=== PATIENT | female | born 1955 | race African-American/Black ===

== ENCOUNTER 2016-07-25 09:55 | Emergency (ER) | payer SELFPAY ==
[~2016-07-25 09:55] MED LIST: ADVAIR115P INH; ALBUTEROL SULFATE INH; CRESTOR PO; CRESTOR10 PO; DUONEB INH; GLUCPH PO; LISINOPRIL PO; LOP25 PO; MEDROLPAK4 PO; NO MEDS; PENVK250 PO; PRIN10 PO; PRIN20 PO; ULTRAM50 PO; VENTOLIN HFA INH
== END 2016-07-25 10:27 | disposition left against medical advice (07) ==
LOC: ER 09:55
DX: Z77.22 Contact with and (suspected) exposure to environmental tobacco smoke (acute) (chronic) (principal); Z76.5 Malingerer [conscious simulation]; J45.909 Unspecified asthma, uncomplicated; J44.9 Chronic obstructive pulmonary disease, unspecified; E11.9 Type 2 diabetes mellitus without complications; Z79.84 Long term (current) use of oral hypoglycemic drugs; Z79.899 Other long term (current) drug therapy
CPT/HCPCS: 71010; 80048; 83735; 83880; 84484; 85025; 85610; 85730; 93005; 94640; 99285; A9270-GY; J2930